=== PATIENT | female | born 1970 | race Caucasian/White ===

== ENCOUNTER 2019-05-03 22:56 | Emergency (ER) | payer BC ==
--- NOTE | 2019-05-04 02:04 | EDM.PDOC ---
ED HPI GENERAL MEDICAL PROBLEM - General Chief Complaint: Upper Extremity Injury/Pain Stated Complaint: FINGER PAIN Time Seen by Provider: 05/04/19 01:15 Source of Information: Reports: Patient, RN Notes Reviewed History Limitations: Reports: No Limitations - History of Present Illness INITIAL COMMENTS - FREE TEXT/NARRATIVE: The patient states that she was stuck with a filipe thorn in her right second finger on 04/20/2019, however, she did not discover the thorn - it was deep - until the next day, 04/21/2019. She states that when she pulled the thorn out, there was some pus, followed by blood. She states that the finger began swelling on 04/25/2019. She states that she was seen at the [place] [facility] on 04/30/2019 , where she was diagnosed with cellulitis. She was put on oral Keflex and oral vancomycin - the vancomycin because, she states, she easily gets C. difficile with virtually any antibiotic. The patient now presents to our ED because of throbbing, burning, and shooting pain extending from her finger into her hand. She has noticed a firm and pale area on the finger pad, and she reports a tingling sensation to the volar aspect of her finger. She states that she has had chills, but no fever. She is still on the Keflex and vancomycin. The patient's PCP is Dr. Zachery Rivera, in [place]. Her Software Test Engineer is Dr. Lyn Eric, in [place]. Right Finger-Index Pain Score (Numeric/FACES): 8 - Related Data Allergies Allergy/AdvReac Type Severity Reaction Status Date / Time Sulfa (Sulfonamide Allergy Rash Verified 05/03/19 23:39 Antibiotics) plastic tape Allergy Rash Uncoded 05/03/19 23:39 Home Meds: Home Meds Calcitriol 1 mcg PO BID 02/11/19 [History] Clobetasol [Clobetasol Propionate 0.05% Cream] 1 applic TOP BID 02/11/19 [ History] DULoxetine HCl [Duloxetine HCl] 20 mg PO DAILY 02/11/19 [History] Ergocalciferol (Vitamin D2) [Vitamin D2] 1 tab PO MOWEFR 02/11/19 [History] Famotidine 20 mg PO BID 02/11/19 [History] Hydroxychloroquine Sulfate 200 mg PO BID 02/11/19 [History] Lisdexamfetamine Dimesylate [Vyvanse] 70 mg PO ASDIRECTED 02/11/19 [History] Solifenacin Succinate [Vesicare] 10 mg PO DAILY 02/11/19 [History] Cyanocobalamin (Vitamin B-12) [Cyanocobalamin Injection] 1,000 mcg INJECT .MONTHLY 02/12/19 [History] Acetaminophen [Tylenol Extra Strength] 1,000 mg PO TID PRN 05/04/19 [History] Ascorbic Acid [Vitamin C] 500 mg PO DAILY 05/04/19 [History] Carboxymethyl/Gly/Poly80/Pf [Refresh Optive Advanced Drops] 1 drop EYEBOTH QID PRN 05/04/19 [History] Fexofenadine [Beba] 30 mg PO DAILY 05/04/19 [History] Levothyroxine [Synthroid] 88 mcg PO ACBREAKFAST 05/04/19 [History] Multivitamin [Multivitamins] 1 cap PO DAILY 05/04/19 [History] Ondansetron [Zofran] 4 mg SL TID PRN 05/04/19 [History] Orphenadrine [Norflex] 100 mg PO BID PRN 05/04/19 [History] Past Medical History HEENT History: Reports: Impaired Vision Other HEENT History: wears glasses Cardiovascular History: Reports: Other (See Below) (Mitral valve prolapse) Gastrointestinal History: Reports: GERD, Hemorrhoids, Irritable Bowel Syndrome Genitourinary History: Reports: Renal Calculus, Other (See Below) (Overactive bladder. Urinary reflux, s/p surgery.) MEDICAL GENETICIST History: Reports: Musculoskeletal History: Reports: Osteoarthritis Neurological History: Reports: Migraines Psychiatric History: Reports: Anxiety, Depression, PTSD Endocrine/Metabolic History: Reports: Hyperparathyroidism, Hypothyroidism ( after thyroidectomy), Vitamin D Deficiency Hematologic History: Reports: Anemia, B12 Deficiency Immunologic History: Reports: SLE, Other (See Below) (Sjogren's syndrome. Raynaud's phenomenon.) - Infectious Disease History Infectious Disease History: Reports: C-Difficile, Chicken Pox, Shingles - Past Surgical History HEENT Surgical History: Reports: Adenoidectomy, Tonsillectomy GI Surgical History: Reports: Appendectomy, Bariatric Procedure (Gastric bypass 2001), Cholecystectomy, Hernia Repair/Other (x 5) Female Surgical History: Reports: Hysterectomy (partial), Oophorectomy (right ), Other (See Below) (Urine reflux surgery) Endocrine Surgical History: Reports: Thyroidectomy Musculoskeletal Surgical History: Reports: Knee Replacement (right) Social & Family History - Tobacco Use Smoking Status *Q: Former Smoker Years of Tobacco use: 15 Packs/Tins Daily: 1 Month/Year Tobacco Last Used: Quit 2001 - Caffeine Use Caffeine Use: Reports: Coffee Other Caffeine Use: coffee, casual. soda 2 cans - Alcohol Use Alcohol Use History: No - Recreational Drug Use Recreational Drug Use: No - Living Situation & Occupation Living situation: Reports: , with Spouse Occupation: Disabled Review of Systems - Review of Systems Review Of Systems: ROS reveals no pertinent complaints other than HPI. ED EXAM, GENERAL - Physical Exam Exam: See Below Exam Limited By: No Limitations General Appearance: Alert, WD/WN, No Apparent Distress Extremities: Other (The patient's right second finger is mildly swollen. Both of her hands are erythematous; her left second finger is not any more erythematous than the rest of her hand. No increased calor to the finger. There is an area of paleness with induration on the volar aspect of the finger pad, just distal to the DIP joint, and within this area is a scar consistent with a healed puncture wound. No significant tenderness to palpation of this area, and no fluctuance is felt. Neurovascular status of the right upper extremity is intact.) Course - Vital Signs Last Recorded V/S: Last Vital Signs Temp 36.5 C 05/03/19 23:40 Pulse 81 05/03/19 23:40 Resp 20 05/03/19 23:40 BP 152/66 H 05/03/19 23:40 Pulse Ox 100 05/03/19 23:40 - Re-Assessments/Exams Free Text/Narrative Re-Assessment/Exam: 05/04/19 02:00 The patient has a small area of pale induration on her right second finger pad, just distal to the DIP joint. It is possible that this is a small collection of pus, but it is also possible that this is just some induration from a recovering infection. The patient is still on Keflex and Vanco, therefore I think it is premature to recommend incision and drainage. I am recommending patience and continuation of antibiotics. The patient will be returning home later today, and can follow-up with a hand surgeon as early as tomorrow. If the patient does require incision and drainage, I think it far preferable that it be done by a hand surgeon then here in the ED. Departure - Departure Time of Disposition: 02:01 Disposition: Home, Self-Care 01 Condition: Good Clinical Impression: Finger infection - Discharge Information *PRESCRIPTION DRUG MONITORING PROGRAM REVIEWED*: Not Applicable *COPY OF PRESCRIPTION DRUG MONITORING REPORT IN PATIENT BRYCE: Not Applicable Instructions: Fingertip Infection Referrals: PCP,Not In Area [Primary Care Provider] - Forms: ED Department Discharge Additional Instructions: You were seen in the emergency room for a firm, pale area on your right index finger pad. Based on your history and physical examination, this may be a small pus pocket, but it may also be tissue recovering from an infection. We recommend that you continue to take the Keflex and vancomycin that had been prescribed to you earlier, then follow-up with a hand surgeon once you return home to [place]. If any other problems, please do not hesitate to return to the ER.
== END 2019-05-04 02:11 | disposition home or self-care (01) ==
LOC: JD.ED 22:56
DX: L08.9 Local infection of the skin and subcutaneous tissue, unspecified (principal); K21.9 Gastro-esophageal reflux disease without esophagitis; F41.9 Anxiety disorder, unspecified; F32.9 Major depressive disorder, single episode, unspecified; E03.9 Hypothyroidism, unspecified; Z88.2 Allergy status to sulfonamides; Z91.09 Other allergy status, other than to drugs and biological substances; Z79.899 Other long term (current) drug therapy; Z87.442 Personal history of urinary calculi; Z87.891 Personal history of nicotine dependence
CPT/HCPCS: 99283